=== PATIENT | female | born 1930 | race Caucasian/White ===

== ENCOUNTER → 2016-07-31 | Outpatient (CLI) | payer MEDICARE, BC ==
[~2016-07-31] MED LIST: ASPIRIN PO; BACTRIM DS TAB1 EACH PO; COATED ASPIRIN325 M1 PO; CVS FISH OIL 11 EAC1 PO; DARVOCET-N 1001 TAB PO; ECOTRIN325 MG PO; EPLERENONE25 MG PO; FISH OIL 1,0001 CAP PO; HYDROCODON-ACE1 EAC7 PO; K-DUR20 ME1 PO; K-DUR20 ME2 PO; KCL PO; LASIX PO; LASIX20 MG PO; LEVAQUIN750 M1 PO; MELOXICAM15 MG PO; NORVASC10 MG PO; OMEGA 3 FISH OI1 CAP PO; OMEGA Q PLUS PO; OSCAL PO; PHENERGAN PO; PRINIVIL PO; PRINIVIL40 MG PO; TOPROL XL PO; TOPROL XL100 MG PO; VIT E PO; VITAMIN C PO; VITAMIN D2000 UNI1 PO; VITAMIN D5000 UNIT PO; ZESTRIL40 MG PO
--- NOTE | ~2016-07-31 | CT95 ---
[facility] A Service of [facility] RADIOLOGY TEXT RESULTS PATIENT: ROSANNA BYERS LOCATION: [facility] : 31 UNIT #: [id number] AGE: [address]: Dawood Rebolledo IV, MD SEX: F ORDER DR: [id number] [facility] [address] [place], [place] [address] [id number] O MR#: [id number] Acc #: [id number] NAME: ROSANNA BYERS : 1930 SEX: F STUDY DATE/TIME: 07/31/2016 UNIT: [facility] ROOM: STUDY DESCRIPTION: CT Lower Ext Rt Wo Cont Attending Physician: Dawood Rebolledo M.D. Ordering Physician: Dawood Rebolledo M.D. Primary Care Physician: Antony Chris M.D. MEDICAL IMAGING REPORT This report is preliminary unless electronic signature is present EXAM CT pelvis and hips - attention right hip, date of exam is 07/31/2016. HISTORY Order states CT scan right hip. Right superior pubic ramus fracture. Right hip pain. History sheet states hip pain on the right for 3 months. No falls. Osteoporosis. COMPARISON Right hip radiographs 07/29/2016. FINDINGS There are bilateral vertical sacral ala insufficiency fractures involving at least the S1 and S2 segments. There is an apparent transverse component across the anterior cortex of S2. There is a healing fracture of the anterior aspect of the right inferior pubic ramus. There is also a healing fracture with hypertrophic callus of the right superior pubic ramus near the iliopubic junction. There is no right hip articular involvement. The left pubic rami are unremarkable. No femur fracture is noted. There is lower lumbar L4-5 and L5-S1 degenerative disc disease. Hips demonstrate no high-grade arthritic change. There is atherosclerotic vascular calcification. Hysterectomy is presumed. No internal pelvic mass or adenopathy is noted. [facility] A Service of [facility] RADIOLOGY TEXT RESULTS PATIENT: ROSANNA BYERS LOCATION: [facility] : 31 UNIT #: [id number] AGE: [address]: Dawood Rebolledo IV, MD SEX: F ORDER DR: A small marrow lesion in the subtrochanteric left femur demonstrates chondroid matrix and is most compatible with a small enchondroma. IMPRESSION 1. Subacute healing fractures of the right anterior inferior pubic ramus and the right superior pubic ramus near the iliopubic junction with callus formation. 2. H-shaped sacral insufficiency fracture with bilateral vertical and transverse midline component. 3. No femur fracture. 4. Small enchondroma proximal left femoral shaft. 5. Atherosclerotic vascular calcification. 6. Hysterectomy. Dictated by... Kayleigh Brenner M.D. THIS IS AN ELECTRONICALLY VERIFIED REPORT Kayleigh Brenner M.D. at 08/04/2016 10:50 AM ALLEN/gagandeep TD: 08/04/2016 00:17 JOB #: [id number] MEDICAL IMAGING REPORT COPY
== END | disposition home or self-care (01) ==
LOC: CCAT 08:18
DX: S32.501D Unspecified fracture of right pubis, subsequent encounter for fracture with routine healing (principal); D16.22 Benign neoplasm of long bones of left lower limb; I70.90 Unspecified atherosclerosis; Z90.710 Acquired absence of both cervix and uterus
CPT/HCPCS: 73700

== ENCOUNTER 2016-09-06 19:26 | Emergency (ER) | payer MEDICARE, BC ==
[~2016-09-06 19:26] MED LIST changes: -BACTRIM DS TAB1 EACH PO; -HYDROCODON-ACE1 EAC7 PO; -PHENERGAN PO
== END 2016-09-06 20:00 | disposition home or self-care (01) ==
LOC: SED 19:26
DX: I10 Essential (primary) hypertension (principal); Z90.710 Acquired absence of both cervix and uterus; Z88.0 Allergy status to penicillin; Z88.2 Allergy status to sulfonamides
CPT/HCPCS: 99282

== ENCOUNTER 2016-09-21 09:49 | Observation (INO) | payer MEDICARE, BC ==
--- NOTE | ~2016-09-21 | CT4 ---
[facility] A Service of [facility] RADIOLOGY TEXT RESULTS PATIENT: ROSANNA BYERS LOCATION: [facility] : 31 UNIT #: [id number] AGE: [address]: TOM BUENO JR MD SEX: F ORDER DR: [id number] [place] [facility] [address]. [place], [place] [address] [id number] MR#: [id number] Acc #: [id number] NAME: ROSANNA BYERS. : 1930 SEX: F STUDY DATE/TIME: 09/21/2016 11:02 UNIT: [facility] ROOM: STUDY DESCRIPTION: CT Abd and Pelv Wo Cont Attending Physician: Akil Duvall M.D. Ordering Physician: Akil Duvall M.D. Primary Care Physician: Antony Chris M.D. MEDICAL IMAGING REPORT This report is preliminary unless electronic signature is present EXAM CT of the abdomen and pelvis without contrast, 09/21/[address] of the abdomen and pelvis without contrast with multiplanar reformats. This CT exam was performed with one or more of the following radiation dose reduction techniques: automatic exposure control, adjustment of mA and/or kV according to patient size, and iterative reconstruction. COMPARISON None HISTORY One week history of abdominal pain with nausea and vomiting. Recent antibiotic treatment for urinary tract infection. FINDINGS The lung bases are unremarkable. ABDOMEN: The liver and gallbladder, spleen and pancreas are unremarkable. The adrenal glands and right kidney are normal but there is left mild to moderate hydronephrosis and there is a large stone at the left ureteropelvic junction. There is no additional left ureterolithiasis and there is no right ureterolithiasis. There is no evidence of bowel obstruction. PELVIS: There is no pelvic mass, inflammatory change or abnormal fluid collection, and while there is diverticulosis there is no evidence of diverticulitis and the patient has had hysterectomy. [facility] A Service of [facility] RADIOLOGY TEXT RESULTS PATIENT: ROSANNA BYERS LOCATION: [facility] : 31 UNIT #: [id number] AGE: [address]: TOM BUENO JR MD SEX: F ORDER DR: The stone at the left ureteropelvic junction measures about 12.0 mm in maximal dimension. There is spinal degenerative change and there are multiple chronic appearing compression fractures in the lumbar spine but no acute bony abnormality is suggested. There may be chronic changes in the left sacrum perhaps from an old insufficiency fracture but it does not appear to be an acute insufficiency fracture. IMPRESSION 1. Moderate left hydronephrosis secondary to an approximately 12.0 mm stone at the left ureteropelvic junction. No additional renal or ureteral stones on either side. 2. No bowel or biliary obstruction. 3. Osteopenia and multiple chronic fracture deformities including multiple chronic spinal fractures, chronic right ischiopubic ramus and pubic ramus fractures and probably a chronic healed left sacral insufficiency fracture but again no convincing evidence of any acute bony abnormality. The right pubic fracture also appears chronic but with incomplete osseous union. 4. Diverticulosis without diverticulitis. Dictated by... Hakan Wagner M.D. THIS IS AN ELECTRONICALLY VERIFIED REPORT Hakan Wagner M.D. at 09/22/2016 9:50 AM Eliza TD: 09/21/2016 13:37 JOB #: [id number] MEDICAL IMAGING REPORT Page 1 of 1 COPY
--- NOTE | ~2016-09-21 | OR ---
Unit #: [id number] #: [id number] Patient: ROSANNA BYERS [id number] [address] [address] [id number] I MR#: [id number] NAME: ROSANNA BYERS ROOM: 472 Date of Procedure: 09/21/2016 Admission Date: 09/21/2016 Surgeon: Aleksandar Kowalski M.D. : 1930 Attending Physician: Aleksandar Kowalski M.D. Primary Care Physician: Antony Chris M.D. OPERATIVE REPORT PREOPERATIVE DIAGNOSIS Left ureteral stone resection. POSTOPERATIVE DIAGNOSIS Left ureteral stone resection. PROCEDURES PERFORMED Cystoscopy, left retrograde pyelogram, placement of left ureteral stent. ANESTHESIA General. ESTIMATED BLOOD LOSS Minimal. COMPLICATIONS None. FINDINGS Radiopaque density at the left UPJ. Moderate hydronephrosis behind the stone. These were seen on retrograde pyelogram. At the end of the procedure, the stent was well positioned. DESCRIPTION OF PROCEDURE After informed consent was obtained, the patient taken to the operating room, and general anesthesia was induced. She was placed in lithotomy position, prepped, and draped in standard fashion. Time-out was performed and all team members were in agreement. Rigid cystoscope was passed through the urethral meatus into the bladder without difficulty. The bladder was inspected and demonstrated no tumors, stones, or foreign bodies. Ureteral orifices were orthotopic. The Pollack catheter was placed into the distal ureter and a retrograde pyelogram was performed. This demonstrated a decompressed distal mid ureter with moderate hydronephrosis behind a UPJ calculus. A Sensor wire was passed beyond the calculus into the kidney and a 6 x 24 double-J ureteral stent was passed over the wire. It was seen to be well positioned. The bladder was drained. The patient was awakened from anesthesia, and taken to the recovery room in stable condition. Dictated by... Aleksandar Kowalski M.D. Unit #: [id number] #: [id number] Patient: ROSANNA BYERS REZA/suha TD: 09/22/2016 07:20 JOB #: [id number] OPERATIVE REPORT Page 1 of 1 X X PROCEDURE OPERATIVE NOTE
--- NOTE | ~2016-09-21 | CO ---
Unit #: [id number] #: [id number] Patient: ROSANNA GALICIA [id number] [address] [address] [id number] I MR#: [id number] NAME: ROSANNA GALICIA. ROOM: 472 Age: 86 Sex: F Admission Date: 09/21/2016 : 1930 Attending Physician: Aleksandar Kowalski M.D. Primary Care Physician: Antony Chris M.D. Consultation Date: 09/21/2016 CONSULTATION REPORT CHIEF COMPLAINT Abdominal pain. HISTORY OF PRESENT ILLNESS Ms. Galicia is a pleasant 86-year-old female, who presented to the emergency room with 1-week history of abdominal pain over her lower abdomen and radiating to her left flank. She reports that the pain is intermittent in nature, occasionally severe, and worsened over the course of the week. It was not altered by position or activity level. It was associated with nausea and vomiting. No gross hematuria. No fevers or chills. No dysuria, urgency, frequency. The patient has no known history of kidney stones. PAST MEDICAL HISTORY 1. Hypertension. 2. CHF. 3. Coronary artery disease, followed by Dr. Odonnell. 4. Vitamin D deficiency. 5. Osteoporosis. PAST SURGICAL HISTORY 1. CABG. 2. Hysterectomy. MEDICATIONS See JUL. 1. Aspirin. 2. Lisinopril. 3. Lasix. 4. Norvasc. 5. Potassium. 6. Toprol-XL. ALLERGIES Penicillin allergy. REVIEW OF SYSTEMS Denies headaches, diarrhea, constipation, palpitations, chest pain, shortness of breath, cough, numbness, or tingling in the extremities. No recent rash. No new lumps or bumps. No blurry vision. No sore throat. She does report some mild depression related to her great granddaughter leaving the [employer]. SOCIAL HISTORY Unit #: [id number] #: [id number] Patient: ROSANNA GALICIA Denies tobacco or illicit drug use. FAMILY HISTORY No history of kidney stones noted. PHYSICAL EXAMINATION VITAL SIGNS: Temperature 98.5, pulse 96, blood pressure 166/62, 93% on room air. GENERAL: No apparent distress, appears her stated age. HEAD: Atraumatic. EARS: External infection. Normal hearing. EYES: Pupils equal, round, reactive to light. NECK: Supple. Trachea midline. RESPIRATIONS: Normal effort. Normal chest palpation. CARDIAC: Regular rate and rhythm. Normal carotid pulse. ABDOMEN: Soft, nontender, except for the left costovertebral angle. Nondistended. EXTREMITIES: No peripheral edema. No clubbing. PSYCHIATRIC: Normal mood, normal affect. NEUROLOGIC: Cranial nerves 1 through 12 grossly intact. No apparent numbness over the fingers or toes. DIAGNOSTIC STUDIES LABORATORY RESULTS: Creatinine 1.1, chloride 102, bicarb 21. Urinalysis: 1+ leukocyte esterase, negative nitrites. White blood cell count 10.7, hemoglobin 14.3. IMAGING STUDIES: Radiologist report was reviewed. CT abdomen and pelvis without contrast. A 1.2 cm left UPJ calculus was noted with [id number] hydronephrosis. ASSESSMENT AND PLAN This is an 86-year-old female with a history of a large left ureteropelvic junction calculus, moderate hydronephrosis, and some concern for urinary tract infection. The decision was made to place a ureteral stent after the patient carefully considered the risks and benefits of the procedure. To OR for cystoscopy and stent placement. Dictated by... Reinaldo Romero/suha TD: 09/22/2016 06:07 JOB #: [id number] CONSULTATION REPORT Page 1 of 1 X X CONSULTATION REPORT
[2016-09-21 09:47] LABS: BASOPHIL% 0.4 % (0-2.5); EOSINOPHIL# 0.1 X10e3 (0-0.7); EOSINOPHIL% 1.2 % (0.0-7.0); HEMATOCRIT 42.7 % (35.0-45.0); HEMOGLOBIN 14.3 gm/dL (12.0-16.0); LYMPHOCYTE# 2.6 X10e3 (1.0-3.5); MEAN CELL VOLUME 96.1 FL (83-96); MEAN CORPUSCULAR HEMOGLOBIN 32.2 PG (28-34); MEAN CORPUSCULAR HGB CONC 33.5 g/dL (30-36); MEAN PLATELET VOLUME 9.5 FL (6.5-11.5); MONOCYTE% 9.2 % (3.0-12.0); NEUTROPHIL% 65.2 % (40-75); PLATELET COUNT 210 X10e3 (140-420); RED BLOOD COUNT 4.44 X10e (3.90-5.30); RED CELL DISTRIBUTION WIDTH 13.3 % (11.0-15.5); WHITE BLOOD COUNT 10.7 X10e3 (4.0-10.5)
[2016-09-21 09:50] LABS: DIFF IND NO
[2016-09-21 10:21] LABS: ALBUMIN SERUM 3.6 g/dL (3.5-5.0); BILIRUBIN, DIRECT 0.1 mg/dL (0.0-0.2); BILIRUBIN,INDIRECT 0.7 mg/dL (0.0-0.9); BILIRUBIN,TOTAL 0.8 mg/dL (0.2-2.0); BUN/CREATININE RATIO 18.18; CALCIUM SERUM 9.7 mg/dL (8.4-10.2); CREATININE SERUM 1.1 mg/dL (0.6-1.4); GLOM FILT RATE Estimated 45.8 mL/min (>60); POTASSIUM 4.4 mmol/L (3.5-5.1); PROTEIN TOTAL SERUM 6.6 g/dL (6.0-8.3)
[2016-09-21 10:53] LABS: URINE SOURCE CLEAN CATCH
[2016-09-21 10:59] LABS: URINE APPEARANCE CLEAR; URINE BILIRUBIN NEG (NEG); URINE BLOOD NEG (NEG); URINE COLOR YELLOW; URINE GLUCOSE NEG (NEG); URINE KETONE NEG (NEG); URINE LEUKOCYTE ESTERASE 1+ (NEG); URINE NITRATE NEG (NEG); URINE PROTEIN NEG (NEG); URINE SPECIFIC GRAVITY 1.014 (1.003-1.035)
[2016-09-21 11:02] LABS: CULTURE INDICATED? YES; URINE BACTERIA AUWI NEG (NEGATIVE); URINE SQUAMOUS EPITHELIAL CELL OCC /[HPF]; UWBCS1 AUWI 25-50 (0-5)
[2016-09-21] MEDS ORDERED: LASIX PO (11:45)
[2016-09-22 02:03] LABS: BASOPHIL% 0.4 % (0-2.5); EOSINOPHIL# 0.2 X10e3 (0-0.7); EOSINOPHIL% 1.5 % (0.0-7.0); HEMOGLOBIN 12.6 gm/dL (12.0-16.0); LYMPHOCYTE# 2.7 X10e3 (1.0-3.5); LYMPHOCYTE% 25.2 % (17.0-45.0); MEAN CELL VOLUME 96.7 FL (83-96); MEAN CORPUSCULAR HEMOGLOBIN 32.1 PG (28-34); MEAN CORPUSCULAR HGB CONC 33.2 g/dL (30-36); MEAN PLATELET VOLUME 9.8 FL (6.5-11.5); MONOCYTE# 1.1 X10e3 (0-1.0); MONOCYTE% 10.8 % (3.0-12.0); NEUTROPHIL# 6.6 X10e3 (1.5-7.1); NEUTROPHIL% 62.1 % (40-75); PLATELET COUNT 183 X10e3 (140-420); RED BLOOD COUNT 3.93 X10e (3.90-5.30); RED CELL DISTRIBUTION WIDTH 13.6 % (11.0-15.5); WHITE BLOOD COUNT 10.6 X10e3 (4.0-10.5)
[2016-09-22 02:04] LABS: DIFF IND NO
[2016-09-22 02:31] LABS: CALCIUM SERUM 9.1 mg/dL (8.4-10.2); CREATININE SERUM 0.8 mg/dL (0.6-1.4); GLOM FILT RATE Estimated 67.3 mL/min (>60); POTASSIUM 4.6 mmol/L (3.5-5.1)
[2016-09-22] MEDS ORDERED: PHENERGAN PO (09:17)
[2016-09-22] MEDS ORDERED: HYDROCODON-ACE1 EAC7 PO (09:19)
[2016-09-22] MEDS ORDERED: BACTRIM DS TAB1 EACH PO (09:19)
== END 2016-09-22 09:57 | disposition home or self-care (01) ==
LOC: CED 09:49 → C4C 18:45
PROVIDERS: Emergency Medicine; Student in an Organized Health Care Education/Training Program
DX: N13.2 Hydronephrosis with renal and ureteral calculous obstruction (principal); I10 Essential (primary) hypertension; I25.10 Atherosclerotic heart disease of native coronary artery without angina pectoris; M81.0 Age-related osteoporosis without current pathological fracture; Z95.1 Presence of aortocoronary bypass graft; Z88.0 Allergy status to penicillin; Z79.82 Long term (current) use of aspirin; Z90.710 Acquired absence of both cervix and uterus; Z86.73 Personal history of transient ischemic attack (TIA), and cerebral infarction without residual deficits; Z91.041 Radiographic dye allergy status
CPT/HCPCS: 36415; 74176; 80048; 80076; 81003; 82150; 83690; 85025; 87040; 87086; 96361; 96365; 96374; 96375; 99285; C2617; G0378; J0696; J2405; J3010